=== PATIENT | female | born 1950 | race Caucasian/White ===

== ENCOUNTER → 2021-08-19 17:25 | Outpatient (REF) | payer MEDICARE, SELFPAY ==
--- NOTE | 2021-08-19 17:34 | CA_ITS ---
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 [id number] LV systolic dysfunction with LVEF of 40 45% with mild LVH with impaired relaxation filling pattern 2. At least mildly dilated left atrium 3. Mild aortic regurgitation 4. Mildly dilated ascending aorta 5. Normal RV systolic pressure 6. No pericardial effusion Findings Left Ventricle Normal left ventricular cavity size. There is mildly increased left ventricular wall thickness. The left ventricular systolic function is mild to moderately decreased. The visually estimated ejection fraction is between 40-45%. Spectral Doppler is indicative of an impaired relaxation filling pattern. E/E prime ratio is <8, consistent with normal filling pressures. Evidence suggests grade I (mild) diastolic dysfunction. Right Ventricle Normal right ventricular cavity size and systolic function. Atria The left atrium is mildly dilated. There is a mobile atrial septum noted. There is no evidence of interatrial shunt. The right atrium is likely dilated. Aortic Valve There is mild thickening of the aortic valve. There is no aortic valve stenosis. There is mild aortic valve regurgitation. Mitral Valve Normal mitral valve structure and function. There is trace mitral valve regurgitation. There is no mitral valve stenosis. Pulmonic Valve The pulmonic valve is likely normal. Tricuspid Valve Likely normal tricuspid valve structure and function. There is mild tricuspid valve regurgitation. The right ventricular systolic pressure is normal. Normal right atrial pressure. There is no evidence of pulmonary hypertension. Great Vessels The pulmonary artery was not well visualized. There is mild dilatation of the ascending aorta measuring 4.00 cm. the arch of aorta is measured to be of normal size, reported as prior repair, there is some narrowing in the mid segment but without any clear obstruction. Venous The inferior vena cava is normal in size and collapses greater than 50% with inspiration. Pericardium/Pleural There is no evidence of pericardial effusion. Prior Study Comparison No prior study available for comparison. Measurements 2D Linear Measurements IVSd: 1.30 0.6-0.9/0.6-1.0 cm LVIDd: 4.48 3.9-5.3/4.2-5.9 cm LVIDd Index: 2.84 2.4-3.2/2.2-3.1 cm/m2 LVIDs: 3.36 2.0-3.6 cm LVPWd: 1.21 0.7-1.1 cm LA Diam: 2.90 2.7-3.8/3.0-4.0 cm LAIDs Index: 1.84 1.5-2.3 cm/m2 LV Mass: 261.68 67-162/88-224 g LV Mass Index: 165.62 43-95/49-115 g/m2 LVOT Diam: 2.20 3.0+(-)1.3 cm 2D Systolic Function EF 4C: 41.70 >55% EF 2C: 46.00 >55% EF BiP: 44.70 >55% Mitral Valve MV Pk E: 0.32 MV PK A: 0.66 MV Decel Time: 87.00 E/A: 0.50 E'Lateral: 6.42 E'Medial: 3.81 E/E' Med: 8.40 E/E' Lat: 5.00 PHT: 33.00 MVA PHT: 6.67 Decel [place]: 3.00 Aortic Valve AoV Pk Mono: 1.28 AoV Mn Mono: 0.90 AoV VTI: 0.24 AoV Pk Grad: 7.00 Aov Mn Grad: 4.00 GAVINO Cont.VTI: 2.62 AI Pk Mono: 6.17 AI [place]: 3.02 LVOT LVOT Pk Mono: 0.85 LVOT Mn Mono: 0.54 LVOT VTI: 0.17 LVOT Pk Grad: 3.00 LVOT Mn Grad: 1.00 LVOT Diam: 2.20 LVOT Area: 3.80 Diastolic Function MV Pk E: 0.32 MV Pk A: 0.66 E/A: 0.50 E'Medial: 3.81 E/E' Med: 8.40 E' Laterial: 6.42 E/E' Lat: 5.00 Right Ventricle TAPSE (mm): 15.70 TVS' Mono: 7.83 Tricuspid Valve TR Pk Mono: 1.92 TR Pk Grad: 15.00 RA Press: 8.00 RVSP: 23.00 Great Vessels Aorta Sinus of Valsalva: 4.13 2.0-3.5 cm Ao Asc: 4.00 2.1-3.4 cm Ao Arch: 3.10 Updated in Other Vendor System with Status of Final Cal Velasco MD electronically signed on 08/20/2021 9:07:13 AM with status of Final
== END ==
LOC: HO.CARD 17:25
PROVIDERS: Visit Provider Internal Medicine Nephrology
DX: Z98.890 Other specified postprocedural states (principal)
CPT/HCPCS: 93306